=== PATIENT | male | born 1955 | race Caucasian/White ===

== ENCOUNTER 2020-02-09 07:48 | Day surgery (SDC) | payer OTHER ==
[2020-02-06 15:36] VITALS: BMI 32.3
--- NOTE | 2020-02-09 08:08 | OP ---
Operative Note - Note: Operative Date: 02/09/20 Pre-Operative Diagnosis: Right knee medial meniscus tear Operation: Right knee arthroscopy with partial medial meniscectomy Post-Operative Diagnosis: Same as Pre-op Surgeon: Marshall Smith Media Coordinator: Ayana Cervantes Anesthesia: General Operative Report Dictated: Yes
[2020-02-09] MEDS ORDERED: oxyCODONE HCL 5 MG TABLET PO PRN (09:26)
[2020-02-09] MEDS ORDERED: PROMETHAZINE HCL 25 MG/1 ML VIAL IVPUSH PRN (09:26)
[2020-02-09] MEDS ORDERED: ONDANSETRON 4 MG/2 ML VIAL IVPUSH PRN (09:26)
[2020-02-09] MEDS ORDERED: LACTATED RINGERS SOLUTION 1,000 ML IV SCH (09:30)
[2020-02-09] MEDS ORDERED: MIDAZOLAM HCL 2 MG/2 ML SINGLE DOSE VIAL ONE (09:37)
[2020-02-09] MEDS ORDERED: BUPIVACAINE HCL/PF 0.25% (2.5MG/ML) 10 ML VIAL ONE (09:42)
[2020-02-09] MEDS ORDERED: DEXAMETHASONE SOD PHOSPHATE 4 MG/1 ML VIAL ONE (09:57)
[2020-02-09] MEDS ORDERED: LIDOCAINE HCL/PF 2% SDV 5ML VIAL ONE (09:57)
[2020-02-09] MEDS ORDERED: ceFAZolin SODIUM 1 GM VIAL ONE (09:57)
[2020-02-09] MEDS ORDERED: KETOROLAC TROMETHAMINE 30 MG/1 ML VIAL ONE (09:57)
[2020-02-09] MEDS ORDERED: ONDANSETRON 4 MG/2 ML VIAL ONE (09:57)
[2020-02-09] MEDS ORDERED: BUPIVACAINE HCL/PF 0.25% (2.5MG/ML) 10 ML VIAL IJ ONE (10:07)
--- NOTE | 2020-02-09 11:13 | OP ---
DATE OF OPERATION: 02/09/2020 PREOPERATIVE DIAGNOSIS: Right knee medial meniscal tear. POSTOPERATIVE DIAGNOSIS: Right knee medial meniscal tear. PROCEDURE: Right knee arthroscopy with partial medial meniscectomy. SURGEON: Marshall Smith MD SKILLS AUDITOR: SB Frias, whose skillful assistance was necessary for the safe and timely performance of this case. ANESTHESIA: General. POSTOPERATIVE CONDITION: Stable. COMPLICATIONS: None. INDICATIONS: This is a pleasant gentleman suffering from medial right knee pain. MRI demonstrated medial meniscal tear. Treatment options were discussed including nonoperative versus operative management. Operative risks were reviewed in detail including bleeding, infection, neurovascular injury, need for further surgery, postoperative pain and stiffness, progression of osteoarthritis. We discussed medical risks such as heart attack, stroke, DVT, PE and . I addressed the use of perioperative antibiotic and DVT prophylaxis. I addressed all the patient's questions and concerns. He voiced understanding and elected to proceed. PROCEDURE: The patient was brought to the operating room where general anesthesia was administered. The right lower extremity was prepped and draped in the usual sterile fashion. A preoperative dose of antibiotics was given and the usual timeout procedure was performed. The knee was now marked out and the portals were injected subcutaneously with 0.25% Marcaine. The lateral portal was now established using 11-blade. The arthroscope was passed into the knee. Examination of the patellofemoral joint demonstrated some moderate partial-thickness chondral loss along the patella and some along the trochlea. The arthroscope was passed to the notch. Here the ACL and PCL were visualized to be intact. The arthroscope was now passed into the medial compartment. A medial portal was established under spinal needle localization. The medial compartment was examined demonstrating high grade partial-thickness chondral loss along the femoral side and fissuring and fraying along the tibial side. There was a complex tear of the medial meniscus noted involving mostly the posterior horn but extending into the body. A flap was displaced into the femoral notch. Utilizing combination of arthroscopic biters and a shaver, this was debrided down to a stable base. The arthroscope now passed into the lateral compartment. Here, mild fraying and fissuring was noted of the femoral and tibial surfaces. Softening was noted of the tibial cartilage. Meniscus was probed and found to be stable. No tears were seen. At this point, the excess fluid was withdrawn from the joint. The portals were sutured using 3-0 nylon. Sterile dressings were placed. The patient was extubated and transferred to recovery room in stable condition. Tanner [id number]
[2020-02-09] MEDS ORDERED: oxyCODONE HCL 5 MG TABLET ONE (11:27)
[2020-02-09 12:08] VITALS: TEMP 97.8
[2020-02-09 12:57] VITALS: BP 116/78; PULSE 68
== END 2020-02-09 12:40 | disposition home or self-care (01) ==
LOC: FASU 07:48
PROVIDERS: ATTEND Orthopaedic Surgery Sports Medicine
PROC: 0SBC4ZZ Excision of Right Knee Joint, Percutaneous Endoscopic Approach (ICD-10-PCS; principal; 2020-02-09 10:08)
DX: S83.241A Other tear of medial meniscus, current injury, right knee, initial encounter (principal); X58.XXXA Exposure to other specified factors, initial encounter; Y93.9 Activity, unspecified; Y92.9 Unspecified place or not applicable
CPT/HCPCS: 94760

== ENCOUNTER 2021-06-21 16:38 | Inpatient (IN) | payer OTHER ==
[2021-06-21 20:22] LABS: BASO % 0.2 % (0-2.0); EOS % 1.2 % (0-4.5); HEMATOCRIT 42.9 % (35.4-49); HEMOGLOBIN 14.5 GM/dL (11.7-16.9); LYMPH % 25.9 % (8-40); MCH 31.6 pg (25.7-33.7); MCHC 33.9 g/dl (32.0-35.9); MEAN CELL VOLUME 93.2 fl (80-96); MEAN PLT VOLUME 7.9 fl (7.5-11.1); NEUT % 62.7 % (42.8-82.8); PLATELET COUNT 148 10^3/uL (134-434); RBC 4.61 M/mm3 (4.00-5.60); WHITE BLOOD COUNT 6.1 K/mm3 (4.0-10.0)
[2021-06-21 20:32] LABS: CHLORIDE 106 mmol/L (98-107); SODIUM 141 mmol/L (136-145)
[2021-06-21 20:36] LABS: CALCIUM 9.1 mg/dL (8.5-10.1)
[2021-06-21 20:37] LABS: ALBUMIN 3.7 g/dl (3.4-5.0); ANION GAP 7 MMOL/L (8-16); BLOOD UREA NITROGEN 12.6 mg/dL (7-18); CO2 29 mmol/L (21-32); GLUCOSE,RANDOM 73 mg/dL (74-106)
[2021-06-21 20:40] LABS: CREATININE 0.9 mg/dL (0.55-1.3); SGOT/AST 32 U/L (15-37); SGPT/ALT 42 U/L (13-61)
[2021-06-21 20:41] LABS: BILIRUBIN,TOTAL 0.6 mg/dL (0.2-1); TOT PROT 7.1 g/dl (6.4-8.2)
[2021-06-21 20:42] LABS: ALK PHOS 87 U/L (45-117)
[2021-06-21 20:43] LABS: INR 1.02 (0.83-1.09); PROTHROMBIN TIME (PATIENT) 11.7 SEC (9.7-13.0)
[2021-06-21 20:45] LABS: N-TERMINAL BNP 26.1 pg/ml (5-125)
[2021-06-21 20:53] LABS: METHADONE, UR NEGATIVE (NEGATIVE)
[2021-06-21 20:54] LABS: OPIATES, URI NEGATIVE (NEGATIVE); PHENCYCLIDINE,URINE NEGATIVE (NEGATIVE); URINE BARBITURATES NEGATIVE (NEGATIVE)
[2021-06-21 21:01] LABS: COCAINE, UR NEGATIVE (NEGATIVE); URINE AMPHETAMINES NEGATIVE (NEGATIVE); URINE BENZODIAZEPINES POSITIVE (NEGATIVE)
[2021-06-22 05:29] VITALS: BMI 35.4
[2021-06-22] MEDS: HEPARIN NA (PORCINE) 5,000 UNITS/ML 1ML VIAL SQ SCH ×2 (09:36→21:00)
[2021-06-22 12:59] LABS: BASO % 0.2 % (0-2.0); EOS % 0.8 % (0-4.5); HEMATOCRIT 47.2 % (35.4-49); LYMPH % 36.8 % (8-40); MCH 31.8 pg (25.7-33.7); MCHC 33.9 g/dl (32.0-35.9); MEAN CELL VOLUME 93.7 fl (80-96); MEAN PLT VOLUME 8.2 fl (7.5-11.1); NEUT % 54.2 % (42.8-82.8); PLATELET COUNT 170 10^3/uL (134-434); RBC 5.04 M/mm3 (4.00-5.60); RDW 12.9 % (11.9-15.9); WHITE BLOOD COUNT 8.8 K/mm3 (4.0-10.0)
[2021-06-22] MEDS ORDERED: HALOPERIDOL LACTATE 5 MG/ML IM ONE (13:21)
[2021-06-22 13:23] LABS: CALCIUM 9.4 mg/dL (8.5-10.1)
[2021-06-22 13:24] LABS: ALBUMIN 4.2 g/dl (3.4-5.0); BLOOD UREA NITROGEN 11.1 mg/dL (7-18)
[2021-06-22 13:28] LABS: BILIRUBIN,TOTAL 0.8 mg/dL (0.2-1); TOT PROT 8.2 g/dl (6.4-8.2)
[2021-06-22] MEDS: HALOPERIDOL LACTATE 5 MG/ML IM PRN (20:32)
[2021-06-22] MEDS: diazePAM 5 MG TABLET PO SCH (21:00)
[2021-06-23] MEDS: HALOPERIDOL LACTATE 5 MG/ML IM PRN ×2 (07:48→16:11)
[2021-06-23] MEDS: FUROSEMIDE 40 MG TABLET (FP) PO SCH (09:11)
[2021-06-23] MEDS: HEPARIN NA (PORCINE) 5,000 UNITS/ML 1ML VIAL SQ SCH ×2 (09:11→21:14)
[2021-06-23] MEDS: diazePAM 5 MG TABLET PO SCH ×2 (09:11→21:13)
[2021-06-23] MEDS: OLANZapine 5 MG TABLET PO SCH ×2 (11:48→21:14)
[2021-06-23 12:59] LABS: URINE APPEARANCE CLEAR; URINE BILIRUBIN NEGATIVE (NEGATIVE); URINE COLOR YELLOW; URINE GLUCOSE (UA) NEGATIVE (NEGATIVE); URINE KETONE 3+ (NEGATIVE); URINE LEUK ESTERASE NEGATIVE (NEGATIVE); URINE NITRITE NEGATIVE (NEGATIVE); URINE PROTEIN NEGATIVE (NEGATIVE); URINE UROBILINOGEN 0.2 mg/dL (0.2-1.0)
[2021-06-24] MEDS: OLANZapine 5 MG TABLET PO SCH (09:30)
[2021-06-24] MEDS: FUROSEMIDE 40 MG TABLET (FP) PO SCH (09:31)
[2021-06-24] MEDS: HEPARIN NA (PORCINE) 5,000 UNITS/ML 1ML VIAL SQ SCH ×2 (09:31→21:05)
[2021-06-24] MEDS: diazePAM 5 MG TABLET PO SCH ×2 (09:31→21:05)
[2021-06-24] MEDS: OLANZapine 10 MG TABLET PO SCH (21:06)
[2021-06-25] MEDS: HALOPERIDOL LACTATE 5 MG/ML IM PRN ×2 (02:36→15:29)
[2021-06-25] MEDS: diazePAM 5 MG TABLET PO SCH ×2 (10:09→23:10)
[2021-06-25] MEDS: FUROSEMIDE 40 MG TABLET (FP) PO SCH (10:09)
[2021-06-25] MEDS: OLANZapine 10 MG TABLET PO SCH ×2 (10:09→23:10)
[2021-06-25] MEDS: HEPARIN NA (PORCINE) 5,000 UNITS/ML 1ML VIAL SQ SCH ×2 (10:10→23:10)
[2021-06-25] MEDS: ACETAMINOPHEN 325 MG TABLET (FP) PO PRN (15:18)
[2021-06-26] MEDS: ACETAMINOPHEN 325 MG TABLET (FP) PO PRN (01:36)
[2021-06-26 08:41] LABS: CALCIUM 8.8 mg/dL (8.5-10.1)
[2021-06-26 08:43] LABS: CREATININE 0.8 mg/dL (0.55-1.3)
[2021-06-26] MEDS: FUROSEMIDE 40 MG TABLET (FP) PO SCH (10:12)
[2021-06-26] MEDS: OLANZapine 10 MG TABLET PO SCH ×2 (10:12→21:13)
[2021-06-26] MEDS: diazePAM 5 MG TABLET PO SCH ×2 (10:12→21:12)
[2021-06-26] MEDS: HEPARIN NA (PORCINE) 5,000 UNITS/ML 1ML VIAL SQ SCH ×2 (10:19→21:12)
[2021-06-27] MEDS: ACETAMINOPHEN 325 MG TABLET (FP) PO PRN (05:27)
[2021-06-27] MEDS: OLANZapine 10 MG TABLET PO SCH (10:46)
[2021-06-27] MEDS: diazePAM 5 MG TABLET PO SCH (10:46)
[2021-06-27] MEDS: FUROSEMIDE 40 MG TABLET (FP) PO SCH (10:46)
[2021-06-27] MEDS: HEPARIN NA (PORCINE) 5,000 UNITS/ML 1ML VIAL SQ SCH (10:48)
[2021-06-27 10:58] VITALS: BP 138/81; PULSE 72; TEMP 97.6
== END 2021-06-27 15:30 | DRG 750 ==
LOC: JER 16:38 → JERBED 22:28 → J6S 06-22 04:12
PROVIDERS: ADMIT Internal Medicine; ATTEND Internal Medicine
DX: F25.0 Schizoaffective disorder, bipolar type (principal); R60.0 Localized edema; R26.81 Unsteadiness on feet; F23 Brief psychotic disorder; F29 Unspecified psychosis not due to a substance or known physiological condition; I10 Essential (primary) hypertension; F41.8 Other specified anxiety disorders; K21.9 Gastro-esophageal reflux disease without esophagitis; R29.6 Repeated falls; R41.0 Disorientation, unspecified; R45.1 Restlessness and agitation; M54.50 Low back pain, unspecified
CPT/HCPCS: 36415; 70450-TC; 71046-TC-FY; 73590-TC-LT-FY; 80048; 80053; 80307; 81003; 82550; 83880; 84484; 85025; 85610; 87086; 93005; 93010; 93306-TC; 93970-TC; 97116-GP; 97161-GP; 99285-25; C9803; J1644; U0003; U0005